=== PATIENT | female | born 1935 | race Caucasian/White ===

== ENCOUNTER 2018-01-31 11:32 | Inpatient (IN) ==
[2018-01-31] MEDS: cefTRIAXone 1,000 MG in SYRINGE 1 EACH IV SCH (15:44)
[2018-01-31] MEDS: BUMETANIDE 1 MG TABLET PO SCH (15:51)
[2018-01-31] MEDS: AZITHROMYCIN INJ 500 MG in SODIUM CHLORIDE 0.9% 250 ML IV SCH (15:51)
[2018-01-31 17:05] LABS: Basophils % 0.4 % (0.0-0.8); Eosinophils # 0.1 10*3/uL (0.0-0.87); Eosinophils % 0.9 % (0.00-10.9); Hemoglobin 12.8 GM/DL (12.0-16.0); Immature Granulocytes % 2.7 %; Immature Granulocytes Absolute 0.23 #; Lymphocytes # 2.6 10*3/uL (1.4-4.0); Lymphocytes % 30.2 % (21.3-54.2); Mean Corpuscular HGB Conc 32.8 GM/DL (32-36); Mean Corpuscular Hemoglobin 30 PG (27-34); Mean Corpuscular Volume 92.6 FL (87-102); Monocytes # 0.7 10*3/uL (0.11-0.8); Monocytes % 8.3 % (1.7-12.7); Neutrophils # 4.9 10*3/uL (1.4-7.4); Neutrophils % 57.5 % (38.7-73.9); Platelet Count 223 T/CUMM (130-400); Red Blood Count 4.21 MC/CUMM (3.8-5.5); White Blood Count 8.5 T/CUMM (4-12)
[2018-01-31] MEDS ORDERED: methylPREDNISolone SOD SUC 125 MG/2 ML VIAL IV SCH (18:00)
[2018-01-31 18:30] LABS: Albumin 3.4 G/DL (3.4-5.0); Bilirubin,Total 0.4 MG/DL (0.2-1.0); Calcium 8.5 MG/DL (8.5-10.1); Osmolality,Calculated 285.8 MOS/KG (273-304); Potassium 3.8 MMOL/L (3.5-5.1); Total Protein 6.5 G/DL (6.4-8.3)
[2018-01-31] MEDS: ALBUTEROL/IPRATROPIUM 3 ML NEB RESP TX SCH (19:50)
[2018-01-31] MEDS ORDERED: GLUCAGON 1 MG VIAL IM PRN (20:18)
[2018-01-31] MEDS ORDERED: DEXTROSE 50% 25 GM/50 ML VIAL IV PRN (20:18)
[2018-01-31] MEDS: BUDESONIDE 0.25 MG/2 ML NEB RESP TX SCH (20:31)
[2018-01-31] MEDS: INSULIN REGULAR 100 UNIT/ML SUBCUT SCH (20:40)
[2018-01-31] MEDS: MAGNESIUM CHLORIDE 64 MG TABLET PO SCH (20:49)
[2018-01-31] MEDS: POTASSIUM CHLORIDE 20 MEQ TABLET PO SCH (20:49)
[2018-01-31] MEDS: OXYBUTYNIN XL 10 MG TABLET PO SCH (20:49)
[2018-01-31] MEDS: hydrALAZINE 25 MG TABLET PO SCH (20:53)
[2018-01-31] MEDS: SODIUM CHLORIDE 0.9% 1,000 ML IV SCH (20:54)
[2018-01-31 22:43] LABS: Apearance,Urine CLEAR (Clear); Bilirubin,Urine Negative (Negative); Blood, Urine Negative (Negative); Glucose,Urine (UA) Negative (Negative); Hyaline Casts,Urine 1 /LPF (0-3); Ketones,Urine Negative (Negative); Mucus,Urine Occasional /LPF (Occasional); Nitrite,Urine Negative (Negative); Protein,Urine Negative; RBC,Urine <1 /HPF (0-4); Squamous Epithelial Cell,Urine Occasional /HPF (0-10); Urine Color Yellow (Yellow); Urine Specific Gravity 1.008 (1.001-1.035); Urine Urobilinogen < 2.0 EU/DL (0.2-1.0); WBC,Urine <1 /HPF (0-6)
[2018-02-01] MEDS: ALBUTEROL/IPRATROPIUM 3 ML NEB RESP TX SCH ×4 (00:16→19:43)
[2018-02-01] MEDS: methylPREDNISolone SOD SUC 40 MG/1 ML VIAL IV SCH ×3 (02:27→17:10)
[2018-02-01] MEDS: LEVOTHYROXINE 75 MCG TABLET PO SCH (05:45)
[2018-02-01 05:51] LABS: Calcium 8.8 MG/DL (8.5-10.1); Osmolality,Calculated 290.7 MOS/KG (273-304); Potassium 4.5 MMOL/L (3.5-5.1)
[2018-02-01] MEDS: BUDESONIDE 0.25 MG/2 ML NEB RESP TX SCH ×2 (07:40→19:44)
[2018-02-01] MEDS ORDERED: SIMVASTATIN 40 MG TABLET PO SCH (09:00)
[2018-02-01] MEDS ORDERED: CHOLECALCIFEROL 1,000 UNIT TABLET PO SCH (09:00)
[2018-02-01] MEDS ORDERED: LOSARTAN 50 MG TABLET PO SCH (09:00)
[2018-02-01] MEDS ORDERED: THIAMINE 100 MG TABLET PO SCH (09:00)
[2018-02-01] MEDS: MAGNESIUM CHLORIDE 64 MG TABLET PO SCH ×2 (09:26→21:48)
[2018-02-01] MEDS: OXYBUTYNIN XL 10 MG TABLET PO SCH ×2 (09:26→21:48)
[2018-02-01] MEDS: BUMETANIDE 1 MG TABLET PO SCH ×2 (09:26→15:48)
[2018-02-01] MEDS: SPIRONOLACTONE 25 MG TABLET PO SCH (09:27)
[2018-02-01] MEDS: MONTELUKAST 10 MG TABLET PO SCH (09:27)
[2018-02-01] MEDS: POTASSIUM CHLORIDE 20 MEQ TABLET PO SCH ×2 (09:27→21:48)
[2018-02-01] MEDS: GLIMEPIRIDE 2 MG TABLET PO SCH (09:27)
[2018-02-01] MEDS: INSULIN REGULAR 100 UNIT/ML SUBCUT SCH ×4 (09:28→21:48)
[2018-02-01] MEDS: METOPROLOL SUCCINATE XL 50 MG TABLET PO SCH (09:28)
[2018-02-01] MEDS: PANTOPRAZOLE 40 MG TABLET PO SCH (09:28)
[2018-02-01] MEDS: ALLOPURINOL 100 MG TABLET PO SCH (09:28)
[2018-02-01] MEDS: hydrALAZINE 25 MG TABLET PO SCH ×2 (09:28→21:48)
[2018-02-01] MEDS: ASPIRIN EC 81 MG TABLET PO SCH (09:28)
[2018-02-01] MEDS: SODIUM CHLORIDE 0.9% 1,000 ML IV SCH (10:27)
[2018-02-01] MEDS ORDERED: ALBUTEROL/IPRATROPIUM 3 ML NEB RESP TX PRN (11:28)
[2018-02-01] MEDS: cefTRIAXone 1,000 MG in SYRINGE 1 EACH IV SCH (15:47)
[2018-02-01] MEDS: AZITHROMYCIN INJ 500 MG in SODIUM CHLORIDE 0.9% 250 ML IV SCH (16:01)
[2018-02-01] MEDS: MAGNESIUM HYDROXIDE SUSP 30 ML UDCUP PO PRN (21:48)
[2018-02-02] MEDS: ALBUTEROL/IPRATROPIUM 3 ML NEB RESP TX SCH ×4 (00:30→19:22)
[2018-02-02] MEDS: methylPREDNISolone SOD SUC 40 MG/1 ML VIAL IV SCH ×3 (01:38→17:05)
[2018-02-02] MEDS: SODIUM CHLORIDE 0.9% 1,000 ML IV SCH ×2 (01:45→12:46)
[2018-02-02 04:13] LABS: Basophils % 0.1 % (0.0-0.8); Hematocrit 32.3 VOL% (35.7-47.0); Hemoglobin 11.1 GM/DL (12.0-16.0); Immature Granulocytes % 3.4 %; Immature Granulocytes Absolute 0.35 #; Lymphocytes # 0.8 10*3/uL (1.4-4.0); Lymphocytes % 7.9 % (21.3-54.2); Mean Corpuscular HGB Conc 34.4 GM/DL (32-36); Mean Corpuscular Hemoglobin 31 PG (27-34); Mean Corpuscular Volume 89.2 FL (87-102); Mean Platelet Volume 11.3 FL (9.6-12.0); Monocytes # 0.5 10*3/uL (0.11-0.8); Monocytes % 5.2 % (1.7-12.7); Neutrophils # 8.6 10*3/uL (1.4-7.4); Neutrophils % 83.4 % (38.7-73.9); Platelet Count 197 T/CUMM (130-400); Red Blood Count 3.62 MC/CUMM (3.8-5.5); White Blood Count 10.3 T/CUMM (4-12)
[2018-02-02 04:40] LABS: Calcium 8.5 MG/DL (8.5-10.1); Osmolality,Calculated 288.7 MOS/KG (273-304); Potassium 4.1 MMOL/L (3.5-5.1)
[2018-02-02] MEDS: LEVOTHYROXINE 75 MCG TABLET PO SCH (05:47)
[2018-02-02] MEDS: BUDESONIDE 0.25 MG/2 ML NEB RESP TX SCH ×2 (08:08→19:22)
[2018-02-02] MEDS: BUMETANIDE 1 MG TABLET PO SCH ×2 (08:27→16:04)
[2018-02-02] MEDS: POTASSIUM CHLORIDE 20 MEQ TABLET PO SCH ×2 (08:27→21:05)
[2018-02-02] MEDS: GLIMEPIRIDE 2 MG TABLET PO SCH (08:27)
[2018-02-02] MEDS: MAGNESIUM CHLORIDE 64 MG TABLET PO SCH ×2 (08:27→21:04)
[2018-02-02] MEDS: MONTELUKAST 10 MG TABLET PO SCH (08:27)
[2018-02-02] MEDS: SPIRONOLACTONE 25 MG TABLET PO SCH (08:28)
[2018-02-02] MEDS: ALLOPURINOL 100 MG TABLET PO SCH (08:28)
[2018-02-02] MEDS: ASPIRIN EC 81 MG TABLET PO SCH (08:28)
[2018-02-02] MEDS: PANTOPRAZOLE 40 MG TABLET PO SCH (08:28)
[2018-02-02] MEDS: INSULIN REGULAR 100 UNIT/ML SUBCUT SCH ×4 (08:28→21:04)
[2018-02-02] MEDS: METOPROLOL SUCCINATE XL 50 MG TABLET PO SCH (08:28)
[2018-02-02] MEDS: hydrALAZINE 25 MG TABLET PO SCH ×2 (08:28→21:05)
[2018-02-02] MEDS: OXYBUTYNIN XL 10 MG TABLET PO SCH ×2 (08:28→21:05)
[2018-02-02] MEDS: cefTRIAXone 1,000 MG in SYRINGE 1 EACH IV SCH (16:04)
[2018-02-02] MEDS: AZITHROMYCIN INJ 500 MG in SODIUM CHLORIDE 0.9% 250 ML IV SCH (16:05)
[2018-02-03] MEDS: ALBUTEROL/IPRATROPIUM 3 ML NEB RESP TX SCH ×4 (00:05→19:24)
[2018-02-03] MEDS: methylPREDNISolone SOD SUC 40 MG/1 ML VIAL IV SCH ×3 (02:04→17:11)
[2018-02-03 05:30] LABS: Calcium 8.7 MG/DL (8.5-10.1); Osmolality,Calculated 289.5 MOS/KG (273-304)
[2018-02-03] MEDS: LEVOTHYROXINE 75 MCG TABLET PO SCH (05:42)
[2018-02-03] MEDS: BUDESONIDE 0.25 MG/2 ML NEB RESP TX SCH ×2 (07:38→19:24)
[2018-02-03] MEDS: MAGNESIUM CHLORIDE 64 MG TABLET PO SCH ×2 (08:19→21:20)
[2018-02-03] MEDS: hydrALAZINE 25 MG TABLET PO SCH ×2 (08:20→21:20)
[2018-02-03] MEDS: ASPIRIN EC 81 MG TABLET PO SCH (08:20)
[2018-02-03] MEDS: METOPROLOL SUCCINATE XL 50 MG TABLET PO SCH (08:20)
[2018-02-03] MEDS: INSULIN REGULAR 100 UNIT/ML SUBCUT SCH ×4 (08:20→21:20)
[2018-02-03] MEDS: PANTOPRAZOLE 40 MG TABLET PO SCH (08:20)
[2018-02-03] MEDS: BUMETANIDE 1 MG TABLET PO SCH ×2 (08:20→17:10)
[2018-02-03] MEDS: SPIRONOLACTONE 25 MG TABLET PO SCH (08:20)
[2018-02-03] MEDS: OXYBUTYNIN XL 10 MG TABLET PO SCH ×2 (08:20→21:20)
[2018-02-03] MEDS: MONTELUKAST 10 MG TABLET PO SCH (08:20)
[2018-02-03] MEDS: SODIUM CHLORIDE 0.9% 1,000 ML IV SCH ×2 (08:20→21:21)
[2018-02-03] MEDS: ALLOPURINOL 100 MG TABLET PO SCH (08:20)
[2018-02-03] MEDS: POTASSIUM CHLORIDE 20 MEQ TABLET PO SCH ×2 (08:20→21:20)
[2018-02-03] MEDS: GLIMEPIRIDE 2 MG TABLET PO SCH (08:20)
[2018-02-03] MEDS ORDERED: AMINOPHYLLINE 250 MG in SODIUM CHLORIDE 0.9% 100 ML IV ONE (11:13)
[2018-02-03] MEDS: cefTRIAXone 1,000 MG in SYRINGE 1 EACH IV SCH (17:10)
[2018-02-03] MEDS: AZITHROMYCIN INJ 500 MG in SODIUM CHLORIDE 0.9% 250 ML IV SCH (17:11)
[2018-02-03] MEDS: AMINOPHYLLINE 500 MG in SODIUM CHLORIDE 0.9% 480 ML IV SCH (17:21)
[2018-02-04] MEDS: methylPREDNISolone SOD SUC 40 MG/1 ML VIAL IV SCH ×3 (03:23→17:33)
[2018-02-04 04:52] LABS: Calcium 8.2 MG/DL (8.5-10.1); Osmolality,Calculated 283.5 MOS/KG (273-304); Potassium 3.7 MMOL/L (3.5-5.1)
[2018-02-04] MEDS: BUDESONIDE 0.25 MG/2 ML NEB RESP TX SCH ×2 (07:38→19:41)
[2018-02-04] MEDS: ALBUTEROL/IPRATROPIUM 3 ML NEB RESP TX SCH ×4 (07:38→19:41)
[2018-02-04] MEDS: METOPROLOL SUCCINATE XL 50 MG TABLET PO SCH (08:10)
[2018-02-04] MEDS: LEVOTHYROXINE 75 MCG TABLET PO SCH (08:10)
[2018-02-04] MEDS: hydrALAZINE 25 MG TABLET PO SCH ×2 (08:10→20:43)
[2018-02-04] MEDS: INSULIN REGULAR 100 UNIT/ML SUBCUT SCH ×4 (08:17→20:43)
[2018-02-04] MEDS: OXYBUTYNIN XL 10 MG TABLET PO SCH ×2 (08:17→20:42)
[2018-02-04] MEDS: SPIRONOLACTONE 25 MG TABLET PO SCH (08:17)
[2018-02-04] MEDS: ASPIRIN EC 81 MG TABLET PO SCH (08:17)
[2018-02-04] MEDS: BUMETANIDE 1 MG TABLET PO SCH ×2 (08:17→16:01)
[2018-02-04] MEDS: GLIMEPIRIDE 2 MG TABLET PO SCH (08:17)
[2018-02-04] MEDS: MONTELUKAST 10 MG TABLET PO SCH (08:18)
[2018-02-04] MEDS: POTASSIUM CHLORIDE 20 MEQ TABLET PO SCH ×2 (08:18→20:43)
[2018-02-04] MEDS: MAGNESIUM CHLORIDE 64 MG TABLET PO SCH ×2 (08:18→20:43)
[2018-02-04] MEDS: ALLOPURINOL 100 MG TABLET PO SCH (08:18)
[2018-02-04] MEDS: PANTOPRAZOLE 40 MG TABLET PO SCH (08:18)
[2018-02-04] MEDS ORDERED: PROPOFOL 200 MG/20 ML VIAL IV ONE (11:00)
[2018-02-04] MEDS ORDERED: LIDOCAINE 1% 5 ML VIAL ONE (11:00)
[2018-02-04] MEDS: SODIUM CHLORIDE 0.9% 1,000 ML IV SCH ×2 (11:21→18:24)
[2018-02-04] MEDS: cefTRIAXone 1,000 MG in SYRINGE 1 EACH IV SCH (15:06)
[2018-02-04] MEDS: AZITHROMYCIN INJ 500 MG in SODIUM CHLORIDE 0.9% 250 ML IV SCH (16:01)
[2018-02-04] MEDS: AMINOPHYLLINE 500 MG in SODIUM CHLORIDE 0.9% 480 ML IV SCH (17:34)
[2018-02-04] MEDS: MAGNESIUM HYDROXIDE SUSP 30 ML UDCUP PO PRN (21:29)
[2018-02-05] MEDS: ALBUTEROL/IPRATROPIUM 3 ML NEB RESP TX SCH ×2 (00:47→07:10)
[2018-02-05] MEDS: SODIUM CHLORIDE 0.9% 1,000 ML IV SCH (02:33)
[2018-02-05] MEDS: methylPREDNISolone SOD SUC 40 MG/1 ML VIAL IV SCH ×2 (02:34→09:36)
[2018-02-05] MEDS: LEVOTHYROXINE 75 MCG TABLET PO SCH (06:08)
[2018-02-05] MEDS: BUDESONIDE 0.25 MG/2 ML NEB RESP TX SCH (07:10)
[2018-02-05 07:33] VITALS: BP 143/58
[2018-02-05] MEDS: INSULIN REGULAR 100 UNIT/ML SUBCUT SCH (07:44)
[2018-02-05] MEDS: BUMETANIDE 1 MG TABLET PO SCH (08:00)
[2018-02-05] MEDS: MAGNESIUM CHLORIDE 64 MG TABLET PO SCH (08:00)
[2018-02-05] MEDS: SPIRONOLACTONE 25 MG TABLET PO SCH (08:00)
[2018-02-05] MEDS: METOPROLOL SUCCINATE XL 50 MG TABLET PO SCH (08:00)
[2018-02-05] MEDS: OXYBUTYNIN XL 10 MG TABLET PO SCH (08:00)
[2018-02-05] MEDS: ALLOPURINOL 100 MG TABLET PO SCH (08:00)
[2018-02-05] MEDS: MONTELUKAST 10 MG TABLET PO SCH (08:00)
[2018-02-05] MEDS: POTASSIUM CHLORIDE 20 MEQ TABLET PO SCH (08:01)
[2018-02-05] MEDS: ASPIRIN EC 81 MG TABLET PO SCH (08:01)
[2018-02-05] MEDS: PANTOPRAZOLE 40 MG TABLET PO SCH (08:01)
[2018-02-05] MEDS: GLIMEPIRIDE 2 MG TABLET PO SCH (08:01)
[2018-02-05] MEDS: hydrALAZINE 25 MG TABLET PO SCH (08:01)
== END 2018-02-05 11:10 | disposition home or self-care (01) | DRG 194 ==
LOC: N.5E 13:18
PROVIDERS: ADMIT Internal Medicine; ATTEND Internal Medicine